=== PATIENT | female | born 1965 | race African-American/Black ===

== ENCOUNTER 2018-11-02 09:34 | Emergency (ER) | payer SELFPAY ==
--- NOTE | 2018-11-02 10:43 | RAD REPORT ---
EXAM DESCRIPTION: US - Lower Extremity Artery [facility] - 11/02/2018 10:30 am CLINICAL HISTORY: Right toe discoloration and pain COMPARISON: None. TECHNIQUE: Doppler evaluation of the right lower extremity arterial tree performed. Waveforms and ve locity values were obtained along with visual inspection. FINDINGS: Triphasic waveform pattern was seen from the right common femoral artery to the popliteal artery. Peak systolic velocity value was 173 cm/second in the common femoral artery tapering to 121 c m/second femoral artery. Popliteal artery decreased at 44 cm/second. No occlusion or flow restricting lesion in this portion of the arterial tree. Monophasic waveform pattern seen in the right posterior tibial and dorsalis pedis arteries. Velocitie s significantly diminished Reeves 20 cm/second in the posterior tibial artery and 26 cm/second in the dorsalis pedis artery. No occlusion or focal restrictive lesion identifiable. IMPRESSION: Below-knee peripheral vascular disease is identifiable but no occlusion or flow restrict ing lesion identifiable.
--- NOTE | 2018-11-02 11:42 | RAD REPORT ---
EXAM DESCRIPTION: RAD - Foot Right 3 View - 11/02/2018 10:41 am CLINICAL HISTORY: Right first toe pain. COMPARISON: None. FINDINGS: No acute fractures seen. There is no dislocation or periosteal reaction present. Patient has advanced for age degenerative change at the first MTP joint. The joint space is narrowed and there are spurring changes along the lateral margin. Early erosive changes are also present along the lateral base of the first proximal phalanx. Metatarsal head is flattened. No bone destructive ch yane. No periarticular mass or calcification. No significant degenerative change at the first IP joint. The second-fifth MTP and IP joint show no s ignificant degenerative change. Patient has relative flattening of the plantar arch. A small plantar spur is present. No air or foreign body in the soft tissues. IMPRESSION: Advanced for age degenerative change at the first MTP joint. No acute fracture changes or bony destructive process.
--- NOTE | 2018-11-02 11:45 | EDPHYS ---
Physician Documentation [facility] Name: Jaye Arnold Age: 53 yrs Sex: Female : 1965 Arrival Date: 11/02/2018 Time: 09:37 Bed 13 Private MD: ED Physician Juan M Delaney HPI: 11/02 10:02 This 53 yrs old Black Female presents to ER via Ambulatory with complaints of Toe Pain. rn 10:02 The patient presents with pain, that is chronic. The complaints affect the right foot. rn Onset: The symptoms/episode began/occurred 1 month(s) ago. Modifying factors: The symptoms are alleviated by nothing, the symptoms are aggravated by weight bearing. Severity of symptoms: At their worst the symptoms were mild, in the emergency department the symptoms are unchanged. The patient has experienced a previous episode. Reports right great toe pain, for about 1month, went to a place to get her toe taken care of, reports had a pedicure and person "squeezed out some pus", a little better, went to urgent care and told they dont deal with toes. NO fever, no trauma. Doesn't hurt right now, reports sometimes pain when walks and at night. . 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 - Social history:: Smoking status: Patient uses tobacco products, smokes one-half pack cigarettes per day. - Ebola Screening: : No symptoms or risks identified at this time. - Family history:: not pertinent. - Hospitalizations: : No recent hospitalization is reported. ROS: 10:09 Constitutional: Negative for fever, chills, and weight loss, MS/Extremity: Negative for rn injury and deformity, + toe pain Skin: Negative for injury, rash, and discoloration, Neuro: Negative for headache, weakness, and seizure. Exam: 10:09 Constitutional: This is a well developed, well nourished patient who is awake, alert, rn and in no acute distress. Skin: Warm, dry, no evidence of cellulitis. MS/ Extremity: Diminished but equal pulses biltareal lower ext/DP, + moderately dry and cracked skin to both feet, worse right foot, no fluctuance of right foot/toe, no focal tenderness, + fungal overgrowth and lifting of right 1st toenail, no streaking, no gangrene or necrosis. Vital Signs: 09:49 BP 125 / 72; Pulse 74; Resp 18; Temp 97.8; Pulse Ox 100% on R/A; Weight 99.79 kg; ph Height 6 ft. 0 in. (182.88 cm); Pain 8/10; 10:51 BP 114 / 66; Pulse 67; Resp 17; Pulse Ox 99% on R/A; tw2 11:48 BP 100 / 72; Pulse 65; Resp 17; Pulse Ox 100% on R/A; tw2 09:49 Body Mass Index 29.84 (99.79 kg, 182.88 cm) ph MDM: 09:53 Patient medically screened. rn 11:43 Differential diagnosis: peripheral vascular disease, fungal infection neuropathy. Data rn reviewed: vital signs, nurses notes, radiologic studies, doppler, plain films, and as a result, I will discharge patient. Counseling: I had a detailed discussion with the patient and/or guardian regarding: the historical points, exam findings, and any diagnostic results supporting the discharge/admit diagnosis, radiology results, the need for outpatient follow up, to return to the emergency department if symptoms worsen or persist or if there are any questions or concerns that arise at home. Special discussion: I discussed with the patient/guardian in detail that at this point there is no indication for admission to the hospital. It is understood, however, that if the symptoms persist or worsen the patient needs to return immediately for re-evaluation. Based on the history and exam findings, there is no indication for further emergent testing or inpatient evaluation. I discussed with the patient/guardian the need to see the information systems security specialist for further evaluation of the symptoms. 11/02 10:05 Order name: Lower Extremity Artery [facility] ; Complete Time: 11:01 rn 11/02 10:05 Order name: XRAY Foot RIGHT 3 View; Complete Time: 11:43 rn Administered Medications: No medications were administered Disposition: 11/02/18 11:45 Discharged to Home. Impression: Peripheral Neuropathy, Osteoarthritis, unspecified site, Peripheral vascular disease, unspecified. - Condition is Stable. - Discharge Instructions: Neuropathic Pain, Peripheral Vascular Disease. - Prescriptions for Clindamycin HCl 300 mg Oral Capsule - take 1 capsule by ORAL route every 6 hours for 10 days; 40 capsule. Diclofenac Sodium 75 mg Oral Tablet, Delayed Release (E.C.) - take 1 tablet by ORAL route 2 times per day; 20 tablet. - Medication Reconciliation Form, Thank You Letter, Antibiotic Education, Prescription Opioid Use form. - Follow up: Doug Powell DPM; When: As needed; Reason: Recheck today's complaints, Re-evaluation by your physician. - Problem is an ongoing problem. - Symptoms are unchanged. Signatures: Dispatcher [employer] EDMS Juan M Delaney MD MD rn Hall, Patricia, RN RN Elisa Christine RN RN tw2 Corrections: (The following items were deleted from the chart) 11:48 11:45 11/02/2018 11:45 Discharged to Home. Impression: Peripheral Neuropathy; tw2 Osteoarthritis, unspecified site; Peripheral vascular disease, unspecified. Condition is Stable. Forms are Medication Reconciliation Form, Thank You Letter, Antibiotic Education, Prescription Opioid Use. Follow up: Doug Powell; When: As needed; Reason: Recheck today's complaints, Re-evaluation by your physician. Problem is an ongoing problem. Symptoms are unchanged. rn
--- NOTE | 2018-11-02 11:45 | ER ---
Nurse's Notes [facility] Name: Jaye Arnold Age: 53 yrs Sex: Female : 1965 Arrival Date: 11/02/2018 Time: 09:37 Bed 13 Private MD: Diagnosis: Peripheral Neuropathy;Osteoarthritis, unspecified site;Peripheral vascular disease, unspecified Presentation: 11/02 09:44 Presenting complaint: Patient states: R great toe pain and swelling since Sep, states, ph " I thought it was an ingrown toenail at first and then I went and saw a doctor and got put on antibiotics and it got a little better but now it's worse again." Denies fever, N/V. Transition of care: patient was received from another setting of care (rehabilitation facility). Onset of symptoms was November 02, 2018. Risk Assessment: Do you want to hurt yourself or someone else? Patient reports no desire to harm self or others. Initial Sepsis Screen: Does the patient meet any 2 criteria? No. Patient's initial sepsis screen is negative. Does the patient have a suspected source of infection? No. Patient's initial sepsis screen is negative. Care prior to arrival: None. 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 - Social history:: Smoking status: Patient uses tobacco products, smokes one-half pack cigarettes per day. - Ebola Screening: : No symptoms or risks identified at this time. - Family history:: not pertinent. - Hospitalizations: : No recent hospitalization is reported. Screenin:49 Abuse screen: Denies threats or abuse. Nutritional screening: No deficits noted. tw2 Tuberculosis screening: No symptoms or risk factors identified. Fall Risk None identified. Assessment: 09:49 General: Appears in no apparent distress. Behavior is calm, cooperative, appropriate tw2 for age. Pain: Complains of pain in plantar aspect of right first toe and Right first toenail. Neuro: Level of Consciousness is awake, alert, obeys commands, Oriented to person, place, time, situation. Cardiovascular: Patient's skin is warm and dry. Respiratory: Airway is patent Respiratory effort is even, unlabored, Respiratory pattern is regular, symmetrical. GI: No signs and/or symptoms were reported involving the gastrointestinal system. : No signs and/or symptoms were reported regarding the genitourinary system. EENT: No signs and/or symptoms were reported regarding the EENT system. Derm: Reports increased pain swelling to right great toe. Musculoskeletal: Range of motion: intact in all extremities. 10:51 Reassessment: Patient appears in no apparent distress at this time. No changes from tw2 previously documented assessment. Patient and/or family updated on plan of care and expected duration. Pain level reassessed. Patient is alert, oriented x 3, equal unlabored respirations, skin warm/dry/pink. 11:47 Reassessment: Patient appears in no apparent distress at this time. No changes from tw2 previously documented assessment. Patient and/or family updated on plan of care and expected duration. Pain level reassessed. Patient is alert, oriented x 3, equal unlabored respirations, skin warm/dry/pink. Vital Signs: 09:49 BP 125 / 72; Pulse 74; Resp 18; Temp 97.8; Pulse Ox 100% on R/A; Weight 99.79 kg; ph Height 6 ft. 0 in. (182.88 cm); Pain 8/10; 10:51 BP 114 / 66; Pulse 67; Resp 17; Pulse Ox 99% on R/A; tw2 11:48 BP 100 / 72; Pulse 65; Resp 17; Pulse Ox 100% on R/A; tw2 09:49 Body Mass Index 29.84 (99.79 kg, 182.88 cm) ph ED Course: 09:37 Patient arrived in ED. as 09:48 Triage completed. ph 09:49 Elisa Christine, JP is Primary Nurse. tw2 09:49 Call light in reach. Pulse ox on. NIBP on. tw2 09:49 Arm band placed on. tw2 09:53 Juan M Delaney MD is Attending Physician. rn 10:30 Lower Extremity Artery [facility] US In Process Unspecified. EDMS 10:34 X-ray completed. Portable x-ray completed in exam room. Patient tolerated procedure jb2 well. 10:41 XRAY Foot RIGHT 3 View In Process Unspecified. EDMS 11:44 Doug Poewll DPM is Referral Physician. rn 11:48 No provider procedures requiring assistance completed. Patient did not have IV access tw2 during this emergency room visit. Administered Medications: No medications were administered Outcome: 11:45 Discharge ordered by MD. rn 11:48 Discharged to home ambulatory. tw2 11:48 Condition: stable 11:48 Discharge instructions given to patient, Instructed on discharge instructions, follow up and referral plans. medication usage, Demonstrated understanding of instructions, follow-up care, medications, Prescriptions given X 2. 11:48 Patient left the ED. tw2 Signatures: Dispatcher [employer] EDMS Meera Josafat jb2 Marya Gordon Roman, MD MD rn Hall, Patricia, RN RN ph Wise, Tara, RN RN tw2
== END 2018-11-02 11:48 | disposition home or self-care (01) ==
LOC: ER 09:34
DX: G62.9 Polyneuropathy, unspecified (principal); M19.90 Unspecified osteoarthritis, unspecified site; I73.9 Peripheral vascular disease, unspecified; F17.210 Nicotine dependence, cigarettes, uncomplicated
CPT/HCPCS: 93926; 99283